=== PATIENT | female | born 1960 | race African-American/Black ===

== ENCOUNTER 2021-07-27 16:00 | Emergency (ER) | payer OTHER ==
[~2021-07-27] VITALS: Ht 167.6 cm; Wt 78.0 kg
[2021-07-27] MEDS ORDERED: IPRATROPIUM BROMIDE (0.02%) 0.5MG/2.5ML NEB HHN STA (17:17)
[2021-07-27] MEDS ORDERED: SODIUM CHLORIDE 0.9% 1,000 ML IV ONE (17:30)
[2021-07-27] MEDS: ALBUTEROL (0.083%) 2.5MG/3ML NEB HHN SCH ×2 (19:07→19:08)
[2021-07-27 19:14] LABS: EOSINOPHILS % 0.1 % (0.0-5.0); HEMATOCRIT. 48.9 % (36.0-48.0); HEMOGLOBIN. 16.4 g/dL (12.0-16.0); LYMPHOCYTES % 35.1 % (20.0-50.0); MEAN CORPUSCULAR HEMOGLOBIN 31.5 pg (28.0-32.0); MEAN CORPUSCULAR VOLUME 94.1 fL (81.0-99.0); MEAN PLATELET VOLUME 9.9 fl (7.4-10.4); MONOCYTES % 13.1 % (2.0-8.0); NEUTROPHILS % 50.7 % (40.0-76.0); PLATELET 184 x1000/uL (130-400); RED CELL DISTRIBUTION WIDTH 13.2 % (11.6-14.6)
[2021-07-27 19:21] LABS: CHLORIDE 106 mEq/L (98-107)
[2021-07-27] MEDS ORDERED: ALBU6.7H9 INH (21:38)
[2021-07-27] MEDS ORDERED: P50 MT (21:38)
[2021-07-27] MEDS ORDERED: AZIT500T8 MT (21:38)
[2021-07-27 21:46] VITALS: BP 125/67
== END 2021-07-27 22:04 | disposition home or self-care (01) ==
LOC: ER 16:00
DX: U07.1 COVID-19 (principal); J44.1 Chronic obstructive pulmonary disease with (acute) exacerbation; E86.0 Dehydration
CPT/HCPCS: 36415; 71045; 80053; 83690; 83880; 84484; 85025; 87426; 93005; 94640; 96360; 99285; J7030; Z7610

== ENCOUNTER 2022-11-13 10:22 | Emergency (ER) | payer MEDICAID, OTHER ==
[~2022-11-13] VITALS: Ht 170.2 cm; Wt 66.0 kg
[~2022-11-13 10:22] MED LIST: ALBU6.7H3 INH; AZIT500T8 MT; P50 MT
[2022-11-13 10:39] VITALS: BP 120/72
== END 2022-11-13 14:09 | disposition home or self-care (01) ==
LOC: ER 10:22
DX: H61.23 Impacted cerumen, bilateral (principal)
CPT/HCPCS: 69210; 99282

== ENCOUNTER 2022-12-18 08:36 | Emergency (ER) | payer MEDICAID ==
[~2022-12-18] VITALS: Ht 167.6 cm; Wt 67.0 kg
[2022-12-18] MEDS ORDERED: ASPIRIN 81MG TABLET PO ONE (09:00)
[2022-12-18] MEDS ORDERED: IPRATROPIUM BROMIDE (0.02%) 0.5MG/2.5ML NEB HHN STA (09:04)
[2022-12-18] MEDS ORDERED: METHYLPREDNISOLONE SOD SUCC 125 MG/2 ML VIAL IV STA (09:04)
[2022-12-18 09:11] LABS: BASOPHILS % 0.8 % (0.0-2.0); HEMATOCRIT. 43.8 % (36.0-48.0); HEMOGLOBIN. 14.5 g/dL (12.0-16.0); MEAN CORPUSCULAR HEMOGLOBIN 31.6 pg (28.0-32.0); MEAN CORPUSCULAR VOLUME 95.2 fL (81.0-99.0); MEAN PLATELET VOLUME 9.3 fl (7.4-10.4); MONOCYTES % 7.3 % (2.0-8.0); NEUTROPHILS % 44.9 % (40.0-76.0); PLATELET 213 x1000/uL (130-400); RED CELL DISTRIBUTION WIDTH 13.2 % (11.6-14.6)
[2022-12-18] MEDS ORDERED: SODIUM CHLORIDE 0.9% 1,000 ML IV ONE (09:15)
[2022-12-18] MEDS: ALBUTEROL (0.083%) 2.5MG/3ML NEB HHN SCH ×3 (09:18→10:03)
[2022-12-18 09:26] LABS: CHLORIDE 107 mEq/L (98-107)
[2022-12-18] MEDS ORDERED: P20 MT (11:23)
[2022-12-18] MEDS ORDERED: ALBU6.7H3 INH (11:24)
[2022-12-18 12:48] VITALS: BP 142/78
== END 2022-12-18 12:51 | disposition home or self-care (01) ==
LOC: ER 08:36
DX: J44.1 Chronic obstructive pulmonary disease with (acute) exacerbation (principal); F17.200 Nicotine dependence, unspecified, uncomplicated; Z20.822 Contact with and (suspected) exposure to COVID-19
CPT/HCPCS: 36415; 71045; 80053; 84484; 85025; 87426; 93005; 94640; 96361; 96374; 99285; 99406; C9803; J2930; J7030; Z7610

== ENCOUNTER 2023-07-10 06:49 | Inpatient (IN) | payer OTHER, MEDICARE ==
[2023-07-10] VITALS (8 sets, daily range): BP systolic 113–139; BP diastolic 65–105; PULSE 84–93; RESP 16–25; TEMP 97.6–97.8
[~2023-07-10] VITALS: Ht 170.2 cm; Wt 81.2 kg
[~2023-07-10 06:49] MED LIST changes: +P20 MT
[2023-07-10] MEDS ORDERED: MAGNESIUM 2 G PREMIX 50 ML IV STA (06:52)
[2023-07-10] MEDS ORDERED: METHYLPREDNISOLONE SOD SUCC 125MG/2ML (ACT-O-VIAL) IV STA (06:52)
[2023-07-10] MEDS ORDERED: IPRATROPIUM BROMIDE (0.02%) 0.5MG/2.5ML NEB HHN STA (06:52)
[2023-07-10] MEDS ORDERED: ALBUTEROL (0.083%) 2.5MG/3ML NEB HHN STA (06:52)
[2023-07-10 07:33] LABS: BASOPHILS % 1.2 % (0.0-2.0); EOSINOPHILS % 0.6 % (0.0-5.0); HEMATOCRIT. 47.2 % (36.0-48.0); HEMOGLOBIN. 15.1 g/dL (12.0-16.0); LYMPHOCYTES % 35.9 % (20.0-50.0); MEAN CORPUSCULAR HGB CONC 31.9 g/dL (31.0-37.0); MEAN CORPUSCULAR VOLUME 97.2 fL (81.0-99.0); MEAN PLATELET VOLUME 9.3 fl (7.4-10.4); MONOCYTES % 14.1 % (2.0-8.0); NEUTROPHILS % 48.2 % (40.0-76.0); PLATELET 173 x1000/uL (130-400); RED BLOOD CELL COUNT 4.86 mill/uL (4.2-5.4); RED CELL DISTRIBUTION WIDTH 13.3 % (11.6-14.6); WHITE BLOOD COUNT 6.4 x1000/uL (4.5-11.0)
[2023-07-10 07:58] LABS: ALANINE AMINOTRANSFERASE 30 IU/L (10-49); ALBUMIN 4.3 g/dL (3.2-4.8); ASPARTATE AMINOTRANSFERASE 37 IU/L (<34); BILIRUBIN TOTAL 0.4 mg/dL (0.1-1.0); CALCIUM 8.7 mg/dL (8.7-10.4); CARBON DIOXIDE 24 mEq/L (21-32); CHLORIDE 108 mEq/L (98-107); CREATININE 0.7 mg/dL (0.6-1.0); GLUCOSE 160 mg/dL (70-105); POTASSIUM 3.5 mEq/L (3.5-5.1); PROTEIN TOTAL 7.4 g/dL (6.0-8.3); SODIUM 140 mEq/L (136-145); UREA NITROGEN BLOOD 9 mg/dL (9-23)
[2023-07-10] MEDS ORDERED: KETOROLAC 30MG/ML VIAL IV ONE (08:15)
[2023-07-10] MEDS ORDERED: METOCLOPRAMIDE HCL 10MG/2ML VIAL IV ONE (08:15)
[2023-07-10 09:56] LABS: TROPONIN I HIGH SENSITIVITY 67 ng/L (3.0-34)
[2023-07-10 10:02] LABS: BG CARBOXYHEMOGLOBIN 0.7 % (0.5-1.5); BG DEOXYHEMOGLOBIN 1.3 % (0.0-5.0); BG FRACTION INSPIRED OXYGEN 30; BG HCO3 ACT 25.8 mmol/L (22.0-26.0); BG METHEMOGLOBIN 0.4 % (0.0-1.5); BG OXYGEN SATURATION 98.7 % (92.0-98.5); BG OXYHEMOGLOBIN 97.6 % (94.0-97.0); BG PCO2 50.8 mmHg (35.0-45.0); BG PH 7.324 (7.350-7.450); BG PO2 135.7 mmHg (75.0-100.0); BG SAMPLE SITE RIGHT RADIAL; BG TOTAL RESPIRATORY RATE 16 b/min; BG VENT MODE MASK - BIPAP
[2023-07-10] MEDS ORDERED: ZOLPIDEM TARTRATE 5MG TABLET PO PRN (12:00)
[2023-07-10] MEDS ORDERED: NITROGLYCERIN 0.4MG TABLET SL SL PRN (12:00)
[2023-07-10] MEDS ORDERED: IPRATROPIUM/ALBUTEROL 0.5-3(2.5)MG/3ML NEB NEB PRN (12:00)
[2023-07-10] MEDS ORDERED: KETOROLAC 15MG/ML VIAL IV PRN (12:00)
[2023-07-10] MEDS ORDERED: DOCUSATE SODIUM 100MG CAPSULE PO PRN (12:00)
[2023-07-10] MEDS ORDERED: CLONIDINE 0.1MG TABLET PO PRN (12:00)
[2023-07-10] MEDS ORDERED: MAGNESIUM/ALUMINUM HYDROXIDE/SIMETHICONE 30ML UDC PO PRN (12:00)
[2023-07-10] MEDS ORDERED: ONDANSETRON HCL 4MG/2ML INJ IV PRN (12:00)
[2023-07-10] MEDS ORDERED: ACETAMINOPHEN 325MG TABLET PO PRN (12:00)
[2023-07-10] MEDS ORDERED: AZITHROMYCIN 500MG/250ML 250 ML IV NR (12:30)
[2023-07-10] MEDS: IPRATROPIUM/ALBUTEROL 0.5-3(2.5)MG/3ML NEB HHN SCH (12:48)
[2023-07-10] MEDS ORDERED: ENOXAPARIN 40MG/0.4ML SYR SUBCUT SCH (13:00)
[2023-07-10] MEDS: DILTIAZEM HCL 30MG TABLET PO SCH ×2 (13:05→18:04)
[2023-07-10 13:17] LABS: ETHANOL BLOOD < 10 mg/dL (<10); IRON 23 ug/dL (50-170); THYROID STIMULATING HORMONE 0.44 uIU/mL (0.55-4.78); TOTAL IRON BINDING CAPACITY 334 ug/dl (250-425)
[2023-07-10] MEDS: METHYLPREDNISOLONE SOD SUCC 125MG/2ML (ACT-O-VIAL) IV SCH ×2 (14:09→21:39)
[2023-07-10 14:41] LABS: FOLIC ACID (FOLATE) SERUM > 20.00 ng/mL (>5.38); VITAMIN B12 SERUM 668 pg/mL (211-911)
[2023-07-10] MEDS: ENOXAPARIN 80MG/0.8ML SYR SUBCUT SCH (18:10)
[2023-07-10 18:54] LABS: CREATINE KINASE MB FRACTION 3.5 ng/mL (0.5-3.6)
[2023-07-10] MEDS: FAMOTIDINE 20MG TABLET PO SCH (20:19)
[2023-07-10] MEDS: GUAIFENESIN 600MG ER TABLET PO SCH (20:19)
[2023-07-10] MEDS: ACETAMINOPHEN 325MG TABLET PO PRN (20:23)
[2023-07-10] MEDS ORDERED: IOHEXOL-350 100 ML BOTTLE ONE (20:47)
[2023-07-10] MEDS ORDERED: ATORVASTATIN CALCIUM 40MG TABLET PO SCH (21:00)
[2023-07-11] VITALS (15 sets, daily range): BP systolic 119–177; BP diastolic 56–112; PULSE 73–110; RESP 18–24; TEMP 97.4–98.3; O2SAT 94–96
[2023-07-11] MEDS: DILTIAZEM HCL 30MG TABLET PO SCH ×5 (00:09→23:35)
[2023-07-11 01:47] LABS: CREATINE KINASE MB FRACTION 4.4 ng/mL (0.5-3.6)
[2023-07-11] MEDS: METHYLPREDNISOLONE SOD SUCC 125MG/2ML (ACT-O-VIAL) IV SCH ×3 (05:40→20:31)
[2023-07-11] MEDS: ENOXAPARIN 80MG/0.8ML SYR SUBCUT SCH ×2 (05:41→17:10)
[2023-07-11 07:06] LABS: BASOPHILS % 0.2 % (0.0-2.0); HEMATOCRIT. 43.6 % (36.0-48.0); HEMOGLOBIN. 13.7 g/dL (12.0-16.0); MEAN CORPUSCULAR HEMOGLOBIN 30.4 pg (28.0-32.0); MEAN CORPUSCULAR HGB CONC 31.5 g/dL (31.0-37.0); MEAN CORPUSCULAR VOLUME 96.7 fL (81.0-99.0); MEAN PLATELET VOLUME 9.9 fl (7.4-10.4); MONOCYTES % 3.6 % (2.0-8.0); NEUTROPHILS % 75.2 % (40.0-76.0); PLATELET 179 x1000/uL (130-400); RED BLOOD CELL COUNT 4.51 mill/uL (4.2-5.4); RED CELL DISTRIBUTION WIDTH 13.1 % (11.6-14.6); WHITE BLOOD COUNT 6.6 x1000/uL (4.5-11.0)
[2023-07-11 07:09] LABS: ALANINE AMINOTRANSFERASE 28 IU/L (10-49); ALBUMIN 4.2 g/dL (3.2-4.8); ASPARTATE AMINOTRANSFERASE 32 IU/L (<34); BILIRUBIN TOTAL 0.4 mg/dL (0.1-1.0); CALCIUM 9.2 mg/dL (8.7-10.4); CARBON DIOXIDE 24 mEq/L (21-32); CHLORIDE 103 mEq/L (98-107); CREATININE 0.5 mg/dL (0.6-1.0); GLUCOSE 149 mg/dL (70-105); PHOSPHORUS 3.4 mg/dL (2.5-4.9); POTASSIUM 3.9 mEq/L (3.5-5.1); PROTEIN TOTAL 6.6 g/dL (6.0-8.3); SODIUM 136 mEq/L (136-145); UREA NITROGEN BLOOD 14 mg/dL (9-23)
[2023-07-11] MEDS: IPRATROPIUM/ALBUTEROL 0.5-3(2.5)MG/3ML NEB HHN SCH ×4 (08:18→20:15)
[2023-07-11] MEDS ORDERED: ASPIRIN 325MG EC TABLET PO SCH (09:00)
[2023-07-11] MEDS: FAMOTIDINE 20MG TABLET PO SCH ×2 (09:52→20:31)
[2023-07-11] MEDS: ACETAMINOPHEN 325MG TABLET PO PRN ×2 (09:53→17:09)
[2023-07-11] MEDS: ASPIRIN 81MG EC TABLET PO SCH (09:53)
[2023-07-11] MEDS: GUAIFENESIN 600MG ER TABLET PO SCH ×2 (09:53→20:30)
[2023-07-11] MEDS: GUAIFENESIN 200MG/10ML SUGAR FREE UDC PO PRN ×3 (11:55→23:35)
[2023-07-11] MEDS ORDERED: AZITHROMYCIN 500 MG in DEXT 5% WATER 250 ML IV SCH (12:00)
[2023-07-11] MEDS ORDERED: KETOROLAC 15MG/ML VIAL IV PRN (15:45)
[2023-07-11 16:09] LABS: CREATINE KINASE MB FRACTION 6.1 ng/mL (0.5-3.6)
[2023-07-11] MEDS: AZITHROMYCIN 500 MG in DEXT 5% WATER 250 ML IV SCH (17:10)
[2023-07-12] VITALS (14 sets, daily range): BP systolic 123–141; BP diastolic 60–80; PULSE 80–101; RESP 14–24; TEMP 97.3–98.1; O2SAT 94–98
[2023-07-12] MEDS: IPRATROPIUM/ALBUTEROL 0.5-3(2.5)MG/3ML NEB HHN SCH ×6 (00:53→20:36)
[2023-07-12] MEDS: METHYLPREDNISOLONE SOD SUCC 125MG/2ML (ACT-O-VIAL) IV SCH ×3 (05:50→21:39)
[2023-07-12] MEDS: DILTIAZEM HCL 30MG TABLET PO SCH ×3 (05:51→18:00)
[2023-07-12] MEDS: ENOXAPARIN 80MG/0.8ML SYR SUBCUT SCH ×2 (05:51→18:00)
[2023-07-12] MEDS: GUAIFENESIN 200MG/10ML SUGAR FREE UDC PO PRN (05:54)
[2023-07-12 06:54] LABS: PROTHROMBIN TIME 10.8 sec (9.6-11.0)
[2023-07-12] MEDS: ASPIRIN 81MG EC TABLET PO SCH (08:36)
[2023-07-12] MEDS: FAMOTIDINE 20MG TABLET PO SCH ×2 (08:37→21:37)
[2023-07-12] MEDS: GUAIFENESIN 600MG ER TABLET PO SCH ×2 (08:38→21:37)
[2023-07-12] MEDS: AZITHROMYCIN 500 MG in DEXT 5% WATER 250 ML IV SCH (13:37)
[2023-07-12] MEDS: ACETAMINOPHEN 325MG TABLET PO PRN (14:12)
[2023-07-13] VITALS (8 sets, daily range): BP systolic 116–149; BP diastolic 56–84; PULSE 77–90; RESP 14–23; TEMP 97.5–98.1; O2SAT 97–98
[2023-07-13] MEDS: IPRATROPIUM/ALBUTEROL 0.5-3(2.5)MG/3ML NEB HHN SCH ×4 (00:25→13:37)
[2023-07-13] MEDS: DILTIAZEM HCL 30MG TABLET PO SCH ×3 (01:44→12:00)
[2023-07-13] MEDS: METHYLPREDNISOLONE SOD SUCC 125MG/2ML (ACT-O-VIAL) IV SCH ×2 (06:14→14:07)
[2023-07-13] MEDS: ENOXAPARIN 80MG/0.8ML SYR SUBCUT SCH (06:14)
[2023-07-13] MEDS: ASPIRIN 81MG EC TABLET PO SCH (09:22)
[2023-07-13] MEDS: GUAIFENESIN 600MG ER TABLET PO SCH (09:23)
[2023-07-13] MEDS: FAMOTIDINE 20MG TABLET PO SCH (09:23)
[2023-07-13] MEDS ORDERED: AZITHROMYCIN 500 MG TABLET PO SCH (12:00)
== END 2023-07-13 18:30 | disposition short-term general hospital (02) | DRG 190 ==
LOC: ER 06:49 → 5EST 10:09
PROVIDERS: ADMIT Internal Medicine; ATTEND Internal Medicine
PROC: 5A09357 Assistance with Respiratory Ventilation, Less than 24 Consecutive Hours, Continuous Positive Airway Pressure (ICD-10-PCS; principal; 2023-07-10)
DX: J44.1 Chronic obstructive pulmonary disease with (acute) exacerbation (principal); I21.A1 Myocardial infarction type 2; J96.01 Acute respiratory failure with hypoxia; J96.02 Acute respiratory failure with hypercapnia; M62.82 Rhabdomyolysis; I11.0 Hypertensive heart disease with heart failure; Z20.822 Contact with and (suspected) exposure to COVID-19; F17.210 Nicotine dependence, cigarettes, uncomplicated; E78.5 Hyperlipidemia, unspecified; I50.9 Heart failure, unspecified; Z79.82 Long term (current) use of aspirin; Z79.899 Other long term (current) drug therapy
CPT/HCPCS: 36415; 36600; 71045; 71275; 80053; 80061; 80320; 82375; 82550; 82553; 82607; 82746; 82805; 83036; 83540; 83550; 83735; 83880; 84100; 84145; 84439; 84443; 84484; 85025; 85379; 87426; 87804; 93005; 93306; 93970; 94640; 94644; 94660; 99291; C9803; J0456; J1650; J1885; J2765; J2930; J3475; J7060; Q9967; G0480